=== PATIENT | female | born 1960 | race Caucasian/White ===

== ENCOUNTER 2021-09-01 20:52 | Inpatient (IN) ==
[2021-09-02] MEDS ORDERED: Melatonin 3 MG TABLET PO PRN (01:31)
[2021-09-02] MEDS ORDERED: Naloxone 0.4 MG/ML INJ IVP PRN (01:31)
[2021-09-02] MEDS ORDERED: *HR* Promethazine 25 MG/ML VIAL IM PRN (01:31)
[2021-09-02] MEDS ORDERED: *HR* Dextrose 50 % in Water (Syg) 50 ML SYRINGE IVP PRN (02:08)
[2021-09-02] MEDS ORDERED: D5% in Water 1,000 ML IVC PRN (02:08)
[2021-09-02] MEDS ORDERED: Dextrose Gel 15 GM/37.5 ML TUBE PO PRN ×2 (02:08)
[2021-09-02 02:12] LABS: Basophils % 0.2 %; Hematocrit 25.9 % (35.3-44.9); Hemoglobin 9.1 g/dL (11.5-15.4); Immature Granulocytes % 3.1 % (0-4); Lymphocytes # 0.3 K/mcL (0.6-4.6); Lymphocytes % 1.4 %; Mean Corpuscular HGB Conc 35.1 g/dL (31.6-35.5); Mean Corpuscular Hemoglobin 28.9 pg (28.0-33.3); Mean Corpuscular Volume 82.2 fL (83.0-100.0); Mean Platelet Volume 9.4 fL (9.4-12.4); Monocytes # 0.5 K/mcL (0.0-1.3); Monocytes % 2.7 %; Neutrophils # 17.3 K/mcL (1.6-8.9); Platelet Count 218 K/mcL (140-400); Red Blood Count 3.15 M/mcL (3.82-4.97); Red Cell Distribution Width 12.9 % (11.5-14.5); Segmented Neutrophils % 92.6 %; White Blood Count 18.7 K/mcL (4.3-11.1)
[2021-09-02 02:15] LABS: INR 1.4
[2021-09-02 02:52] LABS: Magnesium 1.3 mg/dL (1.6-2.6); Phosphorous 3.1 mg/dL (2.7-4.5)
[2021-09-02 02:58] LABS: Sodium 110 mEq/L (136-145)
[2021-09-02 03:16] LABS: BUN/Creatinine Ratio 23 (6-26); Blood Urea Nitrogen 17 mg/dL (8-23); Calcium 8.2 mg/dL (8.6-10.3); Carbon Dioxide 20 mEq/L (23-29); Chloride 82 mEq/L (98-107); Glucose 61 mg/dL (70-105); Osmolality,Calculated 229 (280-300); Potassium 4.9 mEq/L (3.5-5.1); eGFR For African Americans > 60 (> 60); eGFR For Non-African Americans > 60 (> 60)
[2021-09-02] MEDS ORDERED: 0.9 % Sodium Chloride 1,000 ML IVC SCH ×3 (03:45→13:15)
[2021-09-02] MEDS ORDERED: Isovue-370 500 ML BOTTLE IVP ONE (03:45)
[2021-09-02 03:58] LABS: BUN/Creatinine Ratio 25 (6-26); Blood Urea Nitrogen 18 mg/dL (8-23); C-Reactive Protein > 300 mg/L (Less than 10); Calcium 8.3 mg/dL (8.6-10.3); Carbon Dioxide 20 mEq/L (23-29); Chloride 82 mEq/L (98-107); Creatine Kinase 826 Units/L (30-223); Glucose 59 mg/dL (70-105); Osmolality,Calculated 230 (280-300); Potassium 4.9 mEq/L (3.5-5.1); Sodium 110 mEq/L (136-145); eGFR For African Americans > 60 (> 60); eGFR For Non-African Americans > 60 (> 60)
[2021-09-02] MEDS: Calcium Gluconate 1gm/50mL 1 GM/50 ML BAG IVPB SCH ×2 (05:20→06:39)
[2021-09-02 05:48] LABS: Chol/HDL Ratio 1.5 (0-4.9); Cholesterol 81 mg/dL (< 200); HDL Cholesterol 54 mg/dL (40-59); LDL Cholesterol,Calculated 15 mg/dL (< 100); Triglycerides 59 mg/dL (< 150); Troponin I < 0.03 ng/mL (< 0.04)
[2021-09-02] MEDS: Vancomycin 1,250 MG/262.5 ML IV.SOLN IVPB SCH ×2 (05:54→17:06)
[2021-09-02 06:10] LABS: Folate 9.9 ng/mL (3.0-16.0)
[2021-09-02] MEDS ORDERED: Vancomycin 1,250 MG/262.5 ML IV.SOLN IVPB SCH (08:00)
[2021-09-02 08:09] LABS: Estimated Average Glucose 126 mg/dl
[2021-09-02 08:10] LABS: BUN/Creatinine Ratio 25 (6-26); Blood Urea Nitrogen 19 mg/dL (8-23); Calcium 8.1 mg/dL (8.6-10.3); Carbon Dioxide 16 mEq/L (23-29); Chloride 83 mEq/L (98-107); Glucose 101 mg/dL (70-105); Osmolality,Calculated 228 (280-300); Potassium 4.5 mEq/L (3.5-5.1); Sodium 108 mEq/L (136-145); eGFR For African Americans > 60 (> 60); eGFR For Non-African Americans > 60 (> 60)
[2021-09-02] MEDS: Piperacillin/Tazobactam 3.375 GM in 0.9 % Sodium Chloride Mini Bag 100 ML IVPB SCH ×2 (08:32→16:06)
[2021-09-02] MEDS: *HR* Heparin 5,000 UNIT/ML VIAL SQ SCH ×2 (08:34→21:22)
[2021-09-02] MEDS: Multivit/Ca/Min/Fe/FA 1 TAB TABLET PO SCH (08:34)
[2021-09-02] MEDS: Chlorhexidine Rinse 15 ML MOUTHWASH MM SCH ×2 (08:34→21:22)
[2021-09-02] MEDS: Lactobacillus 1 EACH CAP.SPRINK PO SCH ×2 (08:34→21:22)
[2021-09-02] MEDS ORDERED: Albumin 25% 25gram/100mL 25 GM/100 ML IV.SOLN IVPB ONE (08:48)
[2021-09-02 09:29] LABS: Hematocrit 24.2 % (35.3-44.9); Hemoglobin 8.4 g/dL (11.5-15.4); Mean Corpuscular HGB Conc 34.7 g/dL (31.6-35.5); Mean Corpuscular Hemoglobin 28.6 pg (28.0-33.3); Mean Corpuscular Volume 82.3 fL (83.0-100.0); Mean Platelet Volume 9.9 fL (9.4-12.4); Platelet Count 194 K/mcL (140-400); Red Blood Count 2.94 M/mcL (3.82-4.97); Red Cell Distribution Width 12.9 % (11.5-14.5); White Blood Count 17.6 K/mcL (4.3-11.1)
[2021-09-02 09:29] LABS: VBG Ionized Calcium 1.15 mmol/L (1.15-1.35)
[2021-09-02 09:29] LABS: BUN/Creatinine Ratio 25 (6-26); Blood Urea Nitrogen 19 mg/dL (8-23); Calcium 8.4 mg/dL (8.6-10.3); Carbon Dioxide 18 mEq/L (23-29); Chloride 83 mEq/L (98-107); Glucose 87 mg/dL (70-105); Osmolality,Calculated 230 (280-300); Potassium 4.7 mEq/L (3.5-5.1); Sodium 109 mEq/L (136-145); eGFR For African Americans > 60 (> 60); eGFR For Non-African Americans > 60 (> 60)
[2021-09-02 09:38] LABS: ABG Base Excess -7 mEq/L (-2 to 3); ABG HCO3 17 mEq/L (21-27); ABG Oxygen Saturation 98 % (95-98); ABG PCO2 27 mmHg (35-45); ABG PH 7.42 pH Units (7.32-7.45); ABG PO2 98 mmHg (85-104); ABG TCO2 18 mEq/L (20-26)
[2021-09-02 09:45] LABS: Calcium 7.9 mg/dL (8.6-10.3)
[2021-09-02 09:57] LABS: Creatinine,Urine 69 mg/dL; Sodium, Urine < 10.0 mEq/L
[2021-09-02 10:02] LABS: Ferritin 684 ng/mL (10-120); Iron < 10 mcg/dL (50-170)
[2021-09-02] MEDS: Clindamycin 600 MG/50 ML 600 MG/50 ML IV.SOLN IVPB SCH ×2 (10:18→16:15)
[2021-09-02 11:19] LABS: BUN/Creatinine Ratio 24 (6-26); Blood Urea Nitrogen 15 mg/dL (8-23); Calcium 6.8 mg/dL (8.6-10.3); Carbon Dioxide 13 mEq/L (23-29); Chloride 86 mEq/L (98-107); Glucose 67 mg/dL (70-105); Osmolality,Calculated 245 (280-300); Potassium 3.9 mEq/L (3.5-5.1); Sodium 118 mEq/L (136-145); eGFR For African Americans > 60 (> 60); eGFR For Non-African Americans > 60 (> 60)
[2021-09-02] MEDS ORDERED: D5% in Water 1,000 ML IVC SCH (11:45)
[2021-09-02] MEDS: Norepinephrine 4 MG/254 ML IV.SOLN IVC SCH ×2 (12:08→21:21)
[2021-09-02 13:02] LABS: BUN/Creatinine Ratio 23 (6-26); Blood Urea Nitrogen 19 mg/dL (8-23); Calcium 8.2 mg/dL (8.6-10.3); Carbon Dioxide 18 mEq/L (23-29); Chloride 85 mEq/L (98-107); Glucose 88 mg/dL (70-105); Osmolality,Calculated 232 (280-300); Potassium 5.1 mEq/L (3.5-5.1); Sodium 110 mEq/L (136-145); eGFR For African Americans > 60 (> 60); eGFR For Non-African Americans > 60 (> 60)
[2021-09-02 16:10] LABS: BUN/Creatinine Ratio 21 (6-26); Blood Urea Nitrogen 21 mg/dL (8-23); Calcium 8.3 mg/dL (8.6-10.3); Carbon Dioxide 18 mEq/L (23-29); Chloride 84 mEq/L (98-107); Glucose 85 mg/dL (70-105); Osmolality,Calculated 234 (280-300); eGFR For African Americans > 60 (> 60); eGFR For Non-African Americans 58 (> 60)
[2021-09-02 17:51] LABS: Sodium 111 mEq/L (136-145)
[2021-09-02 18:53] LABS: BUN/Creatinine Ratio 19 (6-26); Blood Urea Nitrogen 20 mg/dL (8-23); Calcium 7.6 mg/dL (8.6-10.3); Carbon Dioxide 16 mEq/L (23-29); Chloride 88 mEq/L (98-107); Glucose 120 mg/dL (70-105); Osmolality,Calculated 248 (280-300); Potassium 4.6 mEq/L (3.5-5.1); Sodium 117 mEq/L (136-145); eGFR For African Americans > 60 (> 60); eGFR For Non-African Americans 53 (> 60)
[2021-09-02 22:22] LABS: Calcium 7.3 mg/dL (8.6-10.3); Potassium 4.4 mEq/L (3.5-5.1)
[2021-09-03] MEDS: Piperacillin/Tazobactam 3.375 GM in 0.9 % Sodium Chloride Mini Bag 100 ML IVPB SCH ×3 (00:36→15:50)
[2021-09-03] MEDS: Clindamycin 600 MG/50 ML 600 MG/50 ML IV.SOLN IVPB SCH ×3 (00:37→15:49)
[2021-09-03 01:21] LABS: Calcium 7.4 mg/dL (8.6-10.3); Potassium 4.6 mEq/L (3.5-5.1)
[2021-09-03 06:01] LABS: Calcium 6.8 mg/dL (8.6-10.3)
[2021-09-03] MEDS: Chlorhexidine Rinse 15 ML MOUTHWASH MM SCH ×2 (09:00→20:08)
[2021-09-03] MEDS: Multivit/Ca/Min/Fe/FA 1 TAB TABLET PO SCH (09:01)
[2021-09-03] MEDS: Lactobacillus 1 EACH CAP.SPRINK PO SCH ×2 (09:01→20:08)
[2021-09-03] MEDS: *HR* Heparin 5,000 UNIT/ML VIAL SQ SCH ×2 (09:01→20:08)
[2021-09-03] MEDS: Norepinephrine 4 MG/254 ML IV.SOLN IVC SCH ×2 (10:13→22:41)
[2021-09-03] MEDS: Acetaminophen 325 MG TABLET PO PRN (20:48)
[2021-09-03] MEDS ORDERED: 0.9 % Sodium Chloride 1,000 ML IVC SCH (23:15)
[2021-09-04] MEDS: Clindamycin 600 MG/50 ML 600 MG/50 ML IV.SOLN IVPB SCH ×3 (00:48→15:30)
[2021-09-04] MEDS: Piperacillin/Tazobactam 3.375 GM in 0.9 % Sodium Chloride Mini Bag 100 ML IVPB SCH ×3 (00:54→15:29)
[2021-09-04 02:55] LABS: Calcium 7.5 mg/dL (8.6-10.3); Potassium 4.1 mEq/L (3.5-5.1)
[2021-09-04 06:50] LABS: Basophils % 0.1 %; Eosinophils % 0.2 %; Hematocrit 19.1 % (35.3-44.9); Hemoglobin 6.3 g/dL (11.5-15.4); Immature Granulocytes % 0.7 % (0-4); Lymphocytes # 0.9 K/mcL (0.6-4.6); Lymphocytes % 4.2 %; Mean Corpuscular Hemoglobin 28.4 pg (28.0-33.3); Mean Platelet Volume 10.2 fL (9.4-12.4); Monocytes # 1.1 K/mcL (0.0-1.3); Monocytes % 5.5 %; Neutrophils # 17.9 K/mcL (1.6-8.9); Platelet Count 166 K/mcL (140-400); Red Blood Count 2.22 M/mcL (3.82-4.97); Red Cell Distribution Width 13.6 % (11.5-14.5); Segmented Neutrophils % 89.3 %; White Blood Count 20.1 K/mcL (4.3-11.1)
[2021-09-04 07:13] LABS: Calcium 7.9 mg/dL (8.6-10.3); Magnesium 2.8 mg/dL (1.6-2.6); Potassium 4.1 mEq/L (3.5-5.1)
[2021-09-04] MEDS: Vancomycin 1,250 MG/262.5 ML IV.SOLN IVPB SCH (07:44)
[2021-09-04] MEDS: Norepinephrine 4 MG/254 ML IV.SOLN IVC SCH ×2 (07:46→15:32)
[2021-09-04] MEDS: Multivit/Ca/Min/Fe/FA 1 TAB TABLET PO SCH (07:51)
[2021-09-04] MEDS: *HR* Heparin 5,000 UNIT/ML VIAL SQ SCH ×2 (07:51→21:06)
[2021-09-04] MEDS: Lactobacillus 1 EACH CAP.SPRINK PO SCH ×2 (07:51→20:37)
[2021-09-04] MEDS: Chlorhexidine Rinse 15 ML MOUTHWASH MM SCH ×2 (07:56→20:52)
[2021-09-04 10:11] LABS: Basophils % 0.2 %; Eosinophils # 0.1 K/mcL (0.0-0.6); Eosinophils % 0.3 %; Hematocrit 18.7 % (35.3-44.9); Hemoglobin 6.3 g/dL (11.5-15.4); Immature Granulocytes % 0.7 % (0-4); Lymphocytes # 0.8 K/mcL (0.6-4.6); Lymphocytes % 3.9 %; Mean Corpuscular HGB Conc 33.7 g/dL (31.6-35.5); Mean Corpuscular Volume 86.2 fL (83.0-100.0); Mean Platelet Volume 10.3 fL (9.4-12.4); Monocytes # 0.8 K/mcL (0.0-1.3); Monocytes % 4.2 %; Platelet Count 168 K/mcL (140-400); Red Blood Count 2.17 M/mcL (3.82-4.97); Red Cell Distribution Width 13.7 % (11.5-14.5); Segmented Neutrophils % 90.7 %; White Blood Count 19.8 K/mcL (4.3-11.1)
[2021-09-04 10:31] LABS: Complement C3 97 mg/dL (87-200)
[2021-09-04 10:46] LABS: Albumin 2.5 g/dL (3.5-5.7); Calcium 7.4 mg/dL (8.6-10.3); Potassium 3.8 mEq/L (3.5-5.1)
[2021-09-04 10:50] LABS: Rheumatoid Factor 11 IU/mL (Less than 14)
[2021-09-04] MEDS ORDERED: 0.9 % Sodium Chloride 1,000 ML IVC SCH (11:00)
[2021-09-04] MEDS ORDERED: 0.9 % Sodium Chloride 250 ML IVC ONE ×2 (11:18→11:38)
[2021-09-04 11:42] LABS: Hepatitis B Surface Antigen Nonreactive (Nonreactive)
[2021-09-04 12:11] LABS: Hepatitis B Core IgM Nonreactive (Nonreactive); Hepatitis C Virus Antibody Nonreactive (Nonreactive)
[2021-09-04 12:12] LABS: Hepatitis A Antibody IgM Nonreactive (Nonreactive)
[2021-09-04 12:49] LABS: Transferrin 115 mg/dL (200-400)
[2021-09-04] MEDS: Sodium Bicarbonate 150 MEQ in Water for inj. (sterile) 1,000 ML IVC SCH (14:51)
[2021-09-04] MEDS ORDERED: 0.9 % Sodium Chloride 250 ML ONE (17:27)
[2021-09-04 18:57] LABS: Protein/Creatinine Ratio,Urine 0.85 mg/mg (0.00-0.20); Sodium, Urine 14.4 mEq/L
[2021-09-04 18:58] LABS: Bacteria,Urine Few per hpf (None-Few); Bilirubin,Urine Negative (Negative); Blood,Urine Small (Negative); Clarity,Urine Clear (Clear); Color,Urine Light-Yellow (Yellow); Glucose,Urine (UA) 50 mg/dL (Normal); Ketones,Urine Negative (Negative); Leukocyte Esterase,Urine Negative (Negative); Nitrite,Urine Negative (Negative); PH,Urine 5.5 pH Units (5.0-8.0); Protein,Urine 30 mg/dL (Neg-Trace); Specific Gravity,Urine 1.013 (1.010-1.025); Squamous Epithelial Cell,Urine Few per hpf (None-Few); Urobilinogen,Urine Normal (Normal); WBC,Urine 0-3 per hpf (0-3)
[2021-09-04] MEDS: Acetaminophen 325 MG TABLET PO PRN (21:01)
[2021-09-04 21:26] LABS: Hematocrit 22.1 % (35.3-44.9); Hemoglobin 7.5 g/dL (11.5-15.4); Mean Corpuscular HGB Conc 33.9 g/dL (31.6-35.5); Mean Corpuscular Hemoglobin 29.6 pg (28.0-33.3); Mean Corpuscular Volume 87.4 fL (83.0-100.0); Platelet Count 184 K/mcL (140-400); Red Blood Count 2.53 M/mcL (3.82-4.97); Red Cell Distribution Width 14.4 % (11.5-14.5); White Blood Count 19.3 K/mcL (4.3-11.1)
[2021-09-04 21:51] LABS: Calcium 7.5 mg/dL (8.6-10.3); Potassium 4.1 mEq/L (3.5-5.1)
[2021-09-05] MEDS: Piperacillin/Tazobactam 3.375 GM in 0.9 % Sodium Chloride Mini Bag 100 ML IVPB SCH ×3 (00:50→17:35)
[2021-09-05] MEDS: Sodium Bicarbonate 150 MEQ in Water for inj. (sterile) 1,000 ML IVC SCH (05:18)
[2021-09-05 05:22] LABS: Basophils % 0.1 %; Eosinophils # 0.1 K/mcL (0.0-0.6); Eosinophils % 0.3 %; Hematocrit 22.4 % (35.3-44.9); Hemoglobin 7.5 g/dL (11.5-15.4); Immature Granulocytes % 1.9 % (0-4); Lymphocytes % 5.8 %; Mean Corpuscular HGB Conc 33.5 g/dL (31.6-35.5); Mean Corpuscular Hemoglobin 29.1 pg (28.0-33.3); Mean Corpuscular Volume 86.8 fL (83.0-100.0); Mean Platelet Volume 9.8 fL (9.4-12.4); Monocytes # 1.2 K/mcL (0.0-1.3); Monocytes % 7.2 %; Neutrophils # 13.9 K/mcL (1.6-8.9); Platelet Count 185 K/mcL (140-400); Red Blood Count 2.58 M/mcL (3.82-4.97); Red Cell Distribution Width 14.2 % (11.5-14.5); Segmented Neutrophils % 84.7 %; White Blood Count 16.4 K/mcL (4.3-11.1)
[2021-09-05 05:42] LABS: Calcium 7.8 mg/dL (8.6-10.3); Magnesium 2.5 mg/dL (1.6-2.6)
[2021-09-05] MEDS: Lactobacillus 1 EACH CAP.SPRINK PO SCH (08:11)
[2021-09-05] MEDS: Multivit/Ca/Min/Fe/FA 1 TAB TABLET PO SCH (08:11)
[2021-09-05] MEDS: Chlorhexidine Rinse 15 ML MOUTHWASH MM SCH (08:12)
[2021-09-05] MEDS: *HR* Heparin 5,000 UNIT/ML VIAL SQ SCH (10:59)
[2021-09-05] MEDS ORDERED: Perflutren Lipid Microsphere 1.3 ML in 0.9 % Sodium Chloride 8.7 ML IVP PRN (11:59)
[2021-09-05] MEDS: Acetaminophen 325 MG TABLET PO PRN (17:39)
[2021-09-06] MEDS: Piperacillin/Tazobactam 3.375 GM in 0.9 % Sodium Chloride Mini Bag 100 ML IVPB SCH ×3 (00:05→16:28)
[2021-09-06] MEDS: Chlorhexidine Rinse 15 ML MOUTHWASH MM SCH ×3 (05:48→20:19)
[2021-09-06] MEDS: *HR* Heparin 5,000 UNIT/ML VIAL SQ SCH ×3 (05:49→20:20)
[2021-09-06] MEDS: Lactobacillus 1 EACH CAP.SPRINK PO SCH ×3 (05:49→20:20)
[2021-09-06 06:48] LABS: Basophils % 0.1 %; Eosinophils # 0.1 K/mcL (0.0-0.6); Eosinophils % 0.5 %; Hematocrit 22.6 % (35.3-44.9); Hemoglobin 7.6 g/dL (11.5-15.4); Immature Granulocytes % 3.2 % (0-4); Lymphocytes # 1.2 K/mcL (0.6-4.6); Lymphocytes % 8.7 %; Mean Corpuscular HGB Conc 33.6 g/dL (31.6-35.5); Mean Corpuscular Hemoglobin 29.2 pg (28.0-33.3); Mean Corpuscular Volume 86.9 fL (83.0-100.0); Mean Platelet Volume 9.3 fL (9.4-12.4); Monocytes # 1.4 K/mcL (0.0-1.3); Monocytes % 10.3 %; Neutrophils # 10.3 K/mcL (1.6-8.9); Nucleated Red Blood Cells 0.1 /100 WBC (0); Platelet Count 211 K/mcL (140-400); Red Cell Distribution Width 14.6 % (11.5-14.5); Segmented Neutrophils % 77.2 %; White Blood Count 13.4 K/mcL (4.3-11.1)
[2021-09-06 07:08] LABS: BUN/Creatinine Ratio 19 (6-26); Blood Urea Nitrogen 15 mg/dL (8-23); Calcium 8.1 mg/dL (8.6-10.3); Carbon Dioxide 30 mEq/L (23-29); Chloride 96 mEq/L (98-107); Glucose 129 mg/dL (70-105); Iron 15 mcg/dL (50-170); Magnesium 2.1 mg/dL (1.6-2.6); Osmolality,Calculated 273 (280-300); Potassium 3.8 mEq/L (3.5-5.1); Sodium 130 mEq/L (136-145); eGFR For African Americans > 60 (> 60); eGFR For Non-African Americans > 60 (> 60)
[2021-09-06] MEDS: Multivit/Ca/Min/Fe/FA 1 TAB TABLET PO SCH (08:10)
[2021-09-06] MEDS: Sodium Bicarbonate 150 MEQ in Water for inj. (sterile) 1,000 ML IVC SCH (13:41)
[2021-09-06] MEDS: Norepinephrine 4 MG/254 ML IV.SOLN IVC SCH ×2 (13:44→13:45)
[2021-09-07] MEDS: Piperacillin/Tazobactam 3.375 GM in 0.9 % Sodium Chloride Mini Bag 100 ML IVPB SCH ×3 (00:02→15:21)
[2021-09-07 04:05] LABS: Basophils % 0.2 %; Eosinophils # 0.2 K/mcL (0.0-0.6); Hematocrit 22.8 % (35.3-44.9); Hemoglobin 7.7 g/dL (11.5-15.4); Lymphocytes # 1.5 K/mcL (0.6-4.6); Mean Corpuscular HGB Conc 33.8 g/dL (31.6-35.5); Mean Corpuscular Hemoglobin 29.8 pg (28.0-33.3); Mean Corpuscular Volume 88.4 fL (83.0-100.0); Mean Platelet Volume 9.3 fL (9.4-12.4); Monocytes # 1.3 K/mcL (0.0-1.3); Platelet Count 259 K/mcL (140-400); Red Blood Count 2.58 M/mcL (3.82-4.97); Red Cell Distribution Width 14.6 % (11.5-14.5); Segmented Neutrophils % 75.8 %; White Blood Count 14.5 K/mcL (4.3-11.1)
[2021-09-07 04:12] LABS: BUN/Creatinine Ratio 22 (6-26); Blood Urea Nitrogen 17 mg/dL (8-23); Calcium 8.3 mg/dL (8.6-10.3); Carbon Dioxide 29 mEq/L (23-29); Chloride 96 mEq/L (98-107); Glucose 146 mg/dL (70-105); Magnesium 1.8 mg/dL (1.6-2.6); Osmolality,Calculated 280 (280-300); Potassium 3.9 mEq/L (3.5-5.1); Sodium 133 mEq/L (136-145); eGFR For African Americans > 60 (> 60); eGFR For Non-African Americans > 60 (> 60)
[2021-09-07] MEDS: Chlorhexidine Rinse 15 ML MOUTHWASH MM SCH ×2 (08:02→20:34)
[2021-09-07] MEDS: lisinopriL 20 MG TABLET PO SCH (08:02)
[2021-09-07] MEDS: *HR* Heparin 5,000 UNIT/ML VIAL SQ SCH ×2 (08:02→20:33)
[2021-09-07] MEDS: Loratadine 10 MG TABLET PO SCH (08:02)
[2021-09-07] MEDS: Multivit/Ca/Min/Fe/FA 1 TAB TABLET PO SCH (08:02)
[2021-09-07] MEDS: amLODIPine 5 MG TABLET PO SCH (08:02)
[2021-09-07] MEDS: Lactobacillus 1 EACH CAP.SPRINK PO SCH ×2 (08:02→20:33)
[2021-09-07 09:35] LABS: Serine Protease-3 Antibody 0 AU/mL (0-19)
[2021-09-07 09:36] LABS: ANA IgG by ELISA NONE DETECTED (None Detected)
[2021-09-07 13:25] LABS: % Iron Saturation 8 % (15-50); Transferrin 142 mg/dL (200-400)
[2021-09-07] MEDS ORDERED: Gentamicin Oint 15 GM TUBE TP SCH (15:45)
[2021-09-07] MEDS ORDERED: 0.9 % Sodium Chloride 1,000 ML IVC SCH (16:30)
[2021-09-07] MEDS: Gentamicin Oint 15 GM TUBE TP SCH (20:24)
[2021-09-08] MEDS: Piperacillin/Tazobactam 3.375 GM in 0.9 % Sodium Chloride Mini Bag 100 ML IVPB SCH ×3 (00:27→16:21)
[2021-09-08 05:44] LABS: Basophils # 0.1 K/mcL (0.0-0.2); Basophils % 0.4 %; Eosinophils # 0.2 K/mcL (0.0-0.6); Eosinophils % 1.5 %; Hemoglobin 7.6 g/dL (11.5-15.4); Immature Granulocytes % 5.2 % (0-4); Lymphocytes # 1.4 K/mcL (0.6-4.6); Lymphocytes % 10.1 %; Mean Corpuscular Hemoglobin 29.6 pg (28.0-33.3); Mean Corpuscular Volume 89.5 fL (83.0-100.0); Monocytes # 0.9 K/mcL (0.0-1.3); Monocytes % 6.5 %; Neutrophils # 10.6 K/mcL (1.6-8.9); Platelet Count 301 K/mcL (140-400); Red Blood Count 2.57 M/mcL (3.82-4.97); Red Cell Distribution Width 14.6 % (11.5-14.5); Segmented Neutrophils % 76.3 %; White Blood Count 13.9 K/mcL (4.3-11.1)
[2021-09-08 05:58] LABS: BUN/Creatinine Ratio 22 (6-26); Blood Urea Nitrogen 15 mg/dL (8-23); Calcium 8.4 mg/dL (8.6-10.3); Carbon Dioxide 26 mEq/L (23-29); Chloride 96 mEq/L (98-107); Glucose 146 mg/dL (70-105); Magnesium 1.6 mg/dL (1.6-2.6); Osmolality,Calculated 271 (280-300); Potassium 4.1 mEq/L (3.5-5.1); Sodium 129 mEq/L (136-145); eGFR For African Americans > 60 (> 60); eGFR For Non-African Americans > 60 (> 60)
[2021-09-08] MEDS: Loratadine 10 MG TABLET PO SCH (09:08)
[2021-09-08] MEDS: lisinopriL 20 MG TABLET PO SCH (09:08)
[2021-09-08] MEDS: amLODIPine 5 MG TABLET PO SCH (09:08)
[2021-09-08] MEDS: Lactobacillus 1 EACH CAP.SPRINK PO SCH ×2 (09:08→20:47)
[2021-09-08] MEDS: *HR* Heparin 5,000 UNIT/ML VIAL SQ SCH ×2 (09:10→20:45)
[2021-09-08] MEDS: Chlorhexidine Rinse 15 ML MOUTHWASH MM SCH ×2 (09:10→20:47)
[2021-09-08] MEDS: Multivit/Ca/Min/Fe/FA 1 TAB TABLET PO SCH (09:13)
[2021-09-08 10:30] LABS: Immunoglobulin A 214 mg/dL (68-408); Immunoglobulin G 570 mg/dL (768-1632)
[2021-09-08 10:31] LABS: Immunoglobulin M 62 mg/dL (35-263)
[2021-09-08] MEDS ORDERED: Heparin 1,000 UNITS/500 mL 500 ML ONE (11:11)
[2021-09-08] MEDS ORDERED: *HR* Midazolam HCl 2 MG/2 ML VIAL ONE (11:11)
[2021-09-08] MEDS ORDERED: *HR* FentaNYL (PF) 100 MCG/2 ML VIAL ONE (11:11)
[2021-09-08] MEDS ORDERED: *HR* Heparin 10,000 UNIT/10 ML VIAL ONE (11:11)
[2021-09-08] MEDS ORDERED: 0.9 % Sodium Chloride 2,000 ML ONE (11:12)
[2021-09-08] MEDS: Gentamicin Oint 15 GM TUBE TP SCH (20:48)
[2021-09-08] MEDS: Nystatin POWDER 30 GM BOTTLE TP SCH (20:49)
[2021-09-09] MEDS: Piperacillin/Tazobactam 3.375 GM in 0.9 % Sodium Chloride Mini Bag 100 ML IVPB SCH ×2 (00:01→08:09)
[2021-09-09 03:08] LABS: Hematocrit 22.1 % (35.3-44.9); Hemoglobin 7.1 g/dL (11.5-15.4); Mean Corpuscular HGB Conc 32.1 g/dL (31.6-35.5); Mean Corpuscular Hemoglobin 28.7 pg (28.0-33.3); Mean Corpuscular Volume 89.5 fL (83.0-100.0); Mean Platelet Volume 8.8 fL (9.4-12.4); Platelet Count 292 K/mcL (140-400); Red Blood Count 2.47 M/mcL (3.82-4.97); Red Cell Distribution Width 14.4 % (11.5-14.5); White Blood Count 12.5 K/mcL (4.3-11.1)
[2021-09-09 03:25] LABS: BUN/Creatinine Ratio 21 (6-26); Blood Urea Nitrogen 14 mg/dL (8-23); Calcium 8.2 mg/dL (8.6-10.3); Carbon Dioxide 27 mEq/L (23-29); Chloride 95 mEq/L (98-107); Glucose 104 mg/dL (70-105); Osmolality,Calculated 269 (280-300); Potassium 3.9 mEq/L (3.5-5.1); Sodium 129 mEq/L (136-145); eGFR For African Americans > 60 (> 60); eGFR For Non-African Americans > 60 (> 60)
[2021-09-09] MEDS: Lactobacillus 1 EACH CAP.SPRINK PO SCH ×2 (08:08→20:36)
[2021-09-09] MEDS: Multivit/Ca/Min/Fe/FA 1 TAB TABLET PO SCH (08:08)
[2021-09-09] MEDS: Loratadine 10 MG TABLET PO SCH (08:08)
[2021-09-09] MEDS: lisinopriL 20 MG TABLET PO SCH (08:08)
[2021-09-09] MEDS: amLODIPine 5 MG TABLET PO SCH (08:08)
[2021-09-09] MEDS: Chlorhexidine Rinse 15 ML MOUTHWASH MM SCH ×2 (08:09→20:36)
[2021-09-09] MEDS: Nystatin POWDER 30 GM BOTTLE TP SCH ×2 (08:09→20:38)
[2021-09-09] MEDS: *HR* Heparin 5,000 UNIT/ML VIAL SQ SCH ×2 (08:09→20:36)
[2021-09-09 08:31] LABS: Alpha 2 Globulin (PEP) 0.85 g/dL (0.48-1.05); Beta Globulin (PEP) 0.58 g/dL (0.48-1.10)
[2021-09-09 12:26] LABS: GBM IgG Multiplex Bead Assay 0 AU/mL (0-19); Glomerular Basement Memb IgG NEGATIVE (Negative)
[2021-09-09 12:46] LABS: IFE Reflexed IFE Done
[2021-09-09] MEDS: Cefepime HCl 2,000 MG in 0.9 % Sodium Chloride Mini Bag 100 ML IVPB SCH (16:38)
[2021-09-09] MEDS: DAPTOmycin 500 MG in 0.9 % Sodium Chloride 100 ML IVPB SCH (17:23)
[2021-09-09] MEDS: Gentamicin Oint 15 GM TUBE TP SCH (20:40)
[2021-09-10 03:14] LABS: Hemoglobin 7.1 g/dL (11.5-15.4); Mean Corpuscular HGB Conc 32.3 g/dL (31.6-35.5); Mean Corpuscular Volume 89.8 fL (83.0-100.0); Mean Platelet Volume 8.8 fL (9.4-12.4); Platelet Count 298 K/mcL (140-400); Red Blood Count 2.45 M/mcL (3.82-4.97); Red Cell Distribution Width 14.3 % (11.5-14.5); White Blood Count 11.8 K/mcL (4.3-11.1)
[2021-09-10 03:33] LABS: BUN/Creatinine Ratio 23 (6-26); Blood Urea Nitrogen 18 mg/dL (8-23); Calcium 8.1 mg/dL (8.6-10.3); Carbon Dioxide 26 mEq/L (23-29); Chloride 97 mEq/L (98-107); Glucose 170 mg/dL (70-105); Osmolality,Calculated 274 (280-300); Sodium 129 mEq/L (136-145); eGFR For African Americans > 60 (> 60); eGFR For Non-African Americans > 60 (> 60)
[2021-09-10] MEDS: Cefepime HCl 2,000 MG in 0.9 % Sodium Chloride Mini Bag 100 ML IVPB SCH ×2 (05:26→17:08)
[2021-09-10] MEDS: *HR* Heparin 5,000 UNIT/ML VIAL SQ SCH ×2 (08:08→20:54)
[2021-09-10] MEDS: lisinopriL 20 MG TABLET PO SCH (08:08)
[2021-09-10] MEDS: Lactobacillus 1 EACH CAP.SPRINK PO SCH ×2 (08:08→20:54)
[2021-09-10] MEDS: Loratadine 10 MG TABLET PO SCH (08:08)
[2021-09-10] MEDS: Chlorhexidine Rinse 15 ML MOUTHWASH MM SCH ×2 (08:08→20:54)
[2021-09-10] MEDS: Multivit/Ca/Min/Fe/FA 1 TAB TABLET PO SCH (08:08)
[2021-09-10] MEDS: amLODIPine 5 MG TABLET PO SCH (08:08)
[2021-09-10] MEDS: Nystatin POWDER 30 GM BOTTLE TP SCH ×2 (08:09→20:55)
[2021-09-10] MEDS: DAPTOmycin 500 MG in 0.9 % Sodium Chloride 100 ML IVPB SCH (17:08)
[2021-09-10] MEDS: Gentamicin Oint 15 GM TUBE TP SCH (20:55)
[2021-09-11 05:35] LABS: Hematocrit 21.7 % (35.3-44.9); Hemoglobin 6.8 g/dL (11.5-15.4); Mean Corpuscular HGB Conc 31.3 g/dL (31.6-35.5); Mean Corpuscular Hemoglobin 28.6 pg (28.0-33.3); Mean Corpuscular Volume 91.2 fL (83.0-100.0); Mean Platelet Volume 9.2 fL (9.4-12.4); Platelet Count 320 K/mcL (140-400); Red Blood Count 2.38 M/mcL (3.82-4.97); Red Cell Distribution Width 14.4 % (11.5-14.5); White Blood Count 11.6 K/mcL (4.3-11.1)
[2021-09-11 05:55] LABS: BUN/Creatinine Ratio 26 (6-26); Blood Urea Nitrogen 25 mg/dL (8-23); Calcium 8.2 mg/dL (8.6-10.3); Carbon Dioxide 26 mEq/L (23-29); Chloride 99 mEq/L (98-107); Glucose 195 mg/dL (70-105); Osmolality,Calculated 282 (280-300); Potassium 4.3 mEq/L (3.5-5.1); Sodium 131 mEq/L (136-145); eGFR For African Americans > 60 (> 60); eGFR For Non-African Americans 58 (> 60)
[2021-09-11] MEDS: Cefepime HCl 2,000 MG in 0.9 % Sodium Chloride Mini Bag 100 ML IVPB SCH ×2 (05:58→17:10)
[2021-09-11] MEDS: Chlorhexidine Rinse 15 ML MOUTHWASH MM SCH ×2 (08:03→20:23)
[2021-09-11] MEDS: Loratadine 10 MG TABLET PO SCH (08:03)
[2021-09-11] MEDS: Multivit/Ca/Min/Fe/FA 1 TAB TABLET PO SCH (08:03)
[2021-09-11] MEDS: Lactobacillus 1 EACH CAP.SPRINK PO SCH ×2 (08:03→20:23)
[2021-09-11] MEDS: lisinopriL 20 MG TABLET PO SCH (08:04)
[2021-09-11] MEDS: *HR* Heparin 5,000 UNIT/ML VIAL SQ SCH ×2 (08:04→20:23)
[2021-09-11] MEDS: amLODIPine 5 MG TABLET PO SCH (08:04)
[2021-09-11] MEDS: Nystatin POWDER 30 GM BOTTLE TP SCH ×2 (08:04→20:23)
[2021-09-11] MEDS ORDERED: 0.9 % Sodium Chloride 250 ML ONE (12:55)
[2021-09-11] MEDS: Acetaminophen 325 MG TABLET PO PRN (14:02)
[2021-09-11] MEDS: DAPTOmycin 500 MG in 0.9 % Sodium Chloride 100 ML IVPB SCH (17:06)
[2021-09-11] MEDS: Gentamicin Oint 15 GM TUBE TP SCH (20:24)
[2021-09-11] MEDS ORDERED: Insulin LISPRO 300 UNITS/3 ML VIAL SUBQ SCH (22:30)
[2021-09-12] MEDS: Cefepime HCl 2,000 MG in 0.9 % Sodium Chloride Mini Bag 100 ML IVPB SCH (05:03)
[2021-09-12 05:12] LABS: Hematocrit 25.5 % (35.3-44.9); Hemoglobin 8.1 g/dL (11.5-15.4); Mean Corpuscular HGB Conc 31.8 g/dL (31.6-35.5); Mean Corpuscular Hemoglobin 28.8 pg (28.0-33.3); Mean Corpuscular Volume 90.7 fL (83.0-100.0); Mean Platelet Volume 9.6 fL (9.4-12.4); Platelet Count 323 K/mcL (140-400); Red Blood Count 2.81 M/mcL (3.82-4.97); Red Cell Distribution Width 14.1 % (11.5-14.5); White Blood Count 11.2 K/mcL (4.3-11.1)
[2021-09-12 05:21] LABS: BUN/Creatinine Ratio 28 (6-26); Blood Urea Nitrogen 20 mg/dL (8-23); Calcium 8.3 mg/dL (8.6-10.3); Carbon Dioxide 25 mEq/L (23-29); Chloride 100 mEq/L (98-107); Glucose 149 mg/dL (70-105); Osmolality,Calculated 275 (280-300); Potassium 4.3 mEq/L (3.5-5.1); Sodium 130 mEq/L (136-145); eGFR For African Americans > 60 (> 60); eGFR For Non-African Americans > 60 (> 60)
[2021-09-12] MEDS: amLODIPine 5 MG TABLET PO SCH (07:44)
[2021-09-12] MEDS: Lactobacillus 1 EACH CAP.SPRINK PO SCH (07:45)
[2021-09-12] MEDS: Chlorhexidine Rinse 15 ML MOUTHWASH MM SCH (07:45)
[2021-09-12] MEDS: *HR* Heparin 5,000 UNIT/ML VIAL SQ SCH (07:45)
[2021-09-12] MEDS: Multivit/Ca/Min/Fe/FA 1 TAB TABLET PO SCH (07:45)
[2021-09-12] MEDS: Insulin LISPRO 300 UNITS/3 ML VIAL SUBQ SCH ×2 (07:45→11:21)
[2021-09-12] MEDS: lisinopriL 20 MG TABLET PO SCH (07:45)
[2021-09-12] MEDS: Loratadine 10 MG TABLET PO SCH (07:45)
[2021-09-12] MEDS: Nystatin POWDER 30 GM BOTTLE TP SCH (07:46)
[2021-09-12 09:30] LABS: Adenovirus Not Detected (Not Detect); Bordetella Pertussis Not Detected (Not Detect); Chlamydophila pneumoniae Not Detected (Not Detect); Coronavirus 229E Not Detected (Not Detect); Coronavirus HKU1 Not Detected (Not Detect); Coronavirus NL63 Not Detected (Not Detect); Coronavirus OC43 Not Detected (Not Detect); Human Metapneumovirus Not Detected (Not Detect); Human Rhinovirus/Enterovirus Not Detected (Not Detect); Influenza A Subtype 2009 H1 Not Detected (Not Detect); Influenza B Not Detected (Not Detect); Mycoplasma pneumoniae Not Detected (Not Detect); Parainfluenza Virus 1 Not Detected (Not Detect); Parainfluenza Virus 2 Not Detected (Not Detect); Parainfluenza Virus 3 Not Detected (Not Detect); Parainfluenza Virus 4 Not Detected (Not Detect); Respiratory Syncytial Virus Not Detected (Not Detect); SARS-CoV-2 Not Detected (Not Detect)
[2021-09-12 11:45] VITALS: BP 152/94; PULSE 80; TEMP 98.6; O2SAT 100
== END 2021-09-12 14:31 | DRG 720 ==
LOC: 2NNU → OBSVTOIN 09-02 00:54 → SUATTDRO 09-02 00:54 → 2ANU 09-06 13:31
PROVIDERS: ADMIT Internal Medicine; ATTEND Internal Medicine